=== PATIENT | female | born 1990 | race Caucasian/White ===

== ENCOUNTER → 2017-06-28 | Outpatient (CLI) | payer BC ==
[~2017-06-28] MED LIST: PRENTAB26 PO
== END | disposition home or self-care (01) ==
LOC: C.PAPS 14:54
PROVIDERS: ATTEND Obstetrics & Gynecology
DX: Z34.81 Encounter for supervision of other normal pregnancy, first trimester (principal)

== ENCOUNTER → 2017-06-28 | Outpatient (CLI) | payer BC ==
[2017-07-02 07:44] LABS: CHLAMYDIA TRACH RNA*** NOT DETECTED (NOT DETECTED); GC (NEIS GONORRHOEAE)RNA** NOT DETECTED (NOT DETECTED)
== END ==
LOC: C.LABSPEC 14:19
PROVIDERS: ATTEND Obstetrics & Gynecology
DX: Z34.81 Encounter for supervision of other normal pregnancy, first trimester (principal)

== ENCOUNTER → 2017-06-29 | Outpatient (CLI) | payer BC | END | disposition home or self-care (01) | LOC: C.LAB 15:23 | PROVIDERS: ATTEND Obstetrics & Gynecology | DX: Z34.81 Encounter for supervision of other normal pregnancy, first trimester (principal) ==

== ENCOUNTER → 2017-07-31 | Day surgery (SDC) | payer BC ==
[~2017-07-31] VITALS: Ht 154.9 cm; Wt 70.3 kg
[2017-07-31 16:00] VITALS: BP 121/67; PULSE 72; TEMP 36.7; O2SAT 98; Ht 154.9 cm; Wt 70.3 kg
== END | disposition home or self-care (01) ==
LOC: C.MTU 15:43
PROVIDERS: ATTEND Obstetrics & Gynecology
DX: O20.0 Threatened abortion (principal)

== ENCOUNTER → 2017-09-13 | Outpatient (CLI) | payer BC ==
[2017-09-13 10:06] LABS: BASO % 0.2 %; BASO ABS # 0.02 K/uL (0-0.2); COMPLETE YES; EOS % 0.6 %; HEMATOCRIT 38.6 % (37-47); IG% 0.5 %; LYMPH % 17.7 %; LYMPH ABS # 1.51 K/uL (1.2-3.4); MEAN CORPUSCULAR HEMOGLOBIN 30.5 pg (25-34); MEAN CORPUSCULAR HGB CONC 33.9 g/dl (32-36); MONO % 4.7 %; NEUT % 76.3 %; PLATELET COUNT 191 K/uL (130-400); RED BLOOD COUNT 4.29 M/uL (4.2-5.4); WHITE BLOOD COUNT 8.53 K/uL (4.8-10.8)
[2017-09-13 10:35] LABS: GTGD 50 Grams
[2017-09-14 12:22] LABS: AFP CONCENTRATION 36.9 NG/ML; AFP MULTIPLE OF MEDIAN 1.16; AFPTS GESTATIONAL AGE 16.6 WEEKS; AFPTS INSULIN DEP DIABETIC? NO; AFPTS MATERNAL WT 175 LBS; ALPHA-FETOPROTEIN RACE CAUCASIAN=W; EDD DETERMINED BY ULTRASOUND; ESTRIOL MULTIPLE OF MEDIAN 0.84; HISTORY OF NTD NO; INHIBIN A 114 PG/ML; INHIBIN A MOM 0.73; REPEAT SAMPLE? NO; hCG MULTIPLE OF MEDIAN 0.95
== END | disposition home or self-care (01) ==
LOC: C.LAB 08:00
PROVIDERS: ATTEND Obstetrics & Gynecology
DX: Z34.82 Encounter for supervision of other normal pregnancy, second trimester (principal)

== ENCOUNTER → 2018-01-24 | Outpatient (CLI) | payer BC | END | disposition home or self-care (01) | LOC: C.LABSPEC 14:22 | PROVIDERS: ATTEND Obstetrics & Gynecology | DX: Z34.83 Encounter for supervision of other normal pregnancy, third trimester (principal) ==

== ENCOUNTER 2018-02-22 23:37 | Inpatient (IN) | payer BC ==
[~2018-02-22] VITALS: Ht 154.9 cm; Wt 91.0 kg
[2018-02-23] MEDS ORDERED: ACET650S10 (00:36)
[2018-02-23 00:44] VITALS: Ht 154.9 cm; Wt 91.0 kg
[2018-02-23] MEDS ORDERED: IV FLUIDS COMPLETED PRN (06:30)
[2018-02-23] MEDS ORDERED: DINOPROSTONE 10 MG INSERT PV ONE (10:15)
[2018-02-23] MEDS: BUTORPHANOL TARTRATE 1 MG/ML VIAL IV PRN ×2 (11:12→14:33)
[2018-02-23] MEDS ORDERED: LACTATED RINGER'S 1000ML 1,000 ML IV SCH (14:42)
[2018-02-23] MEDS ORDERED: LACTATED RINGER'S 1000ML 1,000 ML IV PRN (14:42)
[2018-02-23 15:10] LABS: HEMATOCRIT 37.5 % (37-47); HEMOGLOBIN 12.8 g/dL (12.0-16.0); MEAN CELL VOLUME 87.8 fL (80-100); MEAN CORPUSCULAR HGB CONC 34.1 g/dl (32-36); MEAN PLATELET VOLUME 9.3 fL (7.4-10.4); PLATELET COUNT 177 K/uL (130-400); RED CELL DISTRIBUTION WIDTH CV 13.8 % (11.5-14.5); RED CELL DISTRIBUTION WIDTH SD 43.9 fL (36.4-46.3); WHITE BLOOD COUNT 16.92 K/uL (4.8-10.8)
[2018-02-23] MEDS ORDERED: BUPIVACAINE 0.25% 30 ML VIAL ONE (16:05)
[2018-02-23] MEDS ORDERED: EpHEDrine SULFATE INJ 50 MG/ML AMP ONE (16:06)
[2018-02-23] MEDS ORDERED: FENTANYL CITRATE INJ 50 MCG/1 ML 2 ML VIAL ONE ×2 (16:06→17:08)
[2018-02-23] MEDS ORDERED: FENTANYL 2MCG/ML ROPIV 1.25MG/ML 100ML BAG EPI ONE (16:07)
[2018-02-23] MEDS ORDERED: LACTATED RINGER'S 1000ML 500 ML IV PRN ×2 (17:18→17:28)
[2018-02-23] MEDS ORDERED: NALOXONE HCL INJ 1 MG in SODIUM CHLORIDE 0.9% 1000ML 1,000 ML IV PRN (17:28)
[2018-02-23] MEDS ORDERED: ONDANSETRON INJ 2 MG/ML 2 ML VIAL IV PRN (17:30)
[2018-02-23] MEDS ORDERED: EpHEDrine SULFATE INJ 50 MG/ML AMP IV PRN (17:30)
[2018-02-23] MEDS ORDERED: FENTANYL 2MCG/ML ROPIV 1.25MG/ML 100ML BAG EPI PRN (17:30)
[2018-02-23] MEDS ORDERED: DiphenhydrAMINE HCL 50 MG/ML VIAL IV PRN (17:30)
[2018-02-23] MEDS ORDERED: NALBUPHINE HCL INJ 10 MG/ML AMP IV PRN (17:30)
[2018-02-23] MEDS ORDERED: OXYTOCIN 30 UNITS/500ML NSS IV PRN ×2 (17:30→21:15)
[2018-02-23] MEDS ORDERED: NALOXONE HCL INJ 0.4 MG/1 ML VIAL/CARP IV PRN (17:30)
[2018-02-23] MEDS ORDERED: SUPERCREAM 0.870 % 15GM JAR EXT PRN (21:15)
[2018-02-23] MEDS ORDERED: DIPHTHERIA/TETANUS/PERTUSSIS 0.5 ML SYR/VIAL IM. ONE (21:15)
[2018-02-23] MEDS ORDERED: BENZOCAINE 20% AER SPR 82.5 GM CAN EXT PRN (21:15)
[2018-02-23] MEDS ORDERED: ACETAMINOPHEN/CODEINE 300/30MG TAB PO PRN ×2 (21:15)
[2018-02-23] MEDS ORDERED: OXYCODONE/ACETAMINOPHEN 5-325 TAB PO PRN (21:15)
[2018-02-23] MEDS ORDERED: HYDROCORTISONE ACETATE 25 MG SUPP PR PRN (21:15)
[2018-02-23] MEDS ORDERED: LANOLIN OINT EXT PRN (21:15)
[2018-02-23] MEDS: IBUPROFEN 600 MG TAB PO PRN (22:42)
[2018-02-23 23:55] VITALS: BP 118/73; PULSE 108; TEMP 37.2; O2SAT 97
[2018-02-24 03:50] VITALS: BP 116/76; PULSE 90; TEMP 36.8; O2SAT 96
[2018-02-24] MEDS: IBUPROFEN 600 MG TAB PO PRN ×5 (05:48→22:45)
[2018-02-24] MEDS: FERROUS SULFATE 325 MG TAB PO SCH (08:21)
[2018-02-24] MEDS: DOCUSATE SODIUM 100 MG CAP PO SCH ×2 (08:21→19:44)
[2018-02-24] MEDS: PRENATAL VITAMIN TAB PO SCH (08:22)
--- NOTE | 2018-02-24 08:27 | Anesthesia Procedure Note ---
Anesthesia Epidural Removal Nt Date & Time Feb 24, 2018 at 08:27 Vital Signs Pain Intensity: 6.0 Vital Signs Past 12 Hours Date Time Temp Pulse Resp B/P (MAP) Pulse Ox O2 Delivery O2 Flow Rate FiO2 02/24/18 03:50 36.8 90 18 116/76 (89) 96 Room Air 02/23/18 23:55 37.2 108 18 118/73 (88) 97 Room Air 02/23/18 23:55 97 Room Air Notes Mental Status: alert / awake / arousable, participated in evaluation Nausea / Vomiting: adequately controlled Pain: adequately controlled Airway Patency, RR, SpO2: stable & adequate BP & HR: stable & adequate Hydration State: stable & adequate Neuraxial Anesthesia: was administered, sensory block is resolved Anesthetic Complications: no major complications apparent, pt satisfied with anesthetic care Epidural: removed without complications, with tip intact
[2018-02-24 09:00] VITALS: BP 121/79; PULSE 91; TEMP 36.8
[2018-02-24 09:24] LABS: HEMATOCRIT 37.2 % (37-47); HEMOGLOBIN 12.5 g/dL (12.0-16.0)
--- NOTE | 2018-02-24 12:11 | Progress Note ---
Subjective Feb 24, 2018. Subjective conversation w/ patient Ambulation: ambulating normally Voiding: no voiding problems Passing Gas: Yes Diet Tolerance: Regular Diet Lochia: Small Feeding Type: Breast Feeding Review of Systems Constitutional: + fever Objective Vital Signs Date Time Temp Pulse Resp B/P (MAP) Pulse Ox O2 Delivery O2 Flow Rate FiO2 02/24/18 09:00 36.8 91 20 121/79 (93) Room Air 02/24/18 09:00 Room Air 02/24/18 03:50 36.8 90 18 116/76 (89) 96 Room Air 02/23/18 23:55 37.2 108 18 118/73 (88) 97 Room Air 02/23/18 23:55 97 Room Air Physical Exam General Appearance: WELL-APPEARING Fundus: Firm, Non-Tender Extremities: no pedal edema, no calf tenderness Laboratory Results Last 24 Hours Test 02/23/18 14:58 02/24/18 09:13 White Blood Count 16.92 K/uL Red Blood Count 4.27 M/uL Hemoglobin 12.8 g/dL 12.5 g/dL Hematocrit 37.5 % 37.2 % Mean Corpuscular Volume 87.8 fL Mean Corpuscular Hemoglobin 30.0 pg Mean Corpuscular Hemoglobin Concent 34.1 g/dl RDW Standard Deviation 43.9 fL RDW Coefficient of Variation 13.8 % Platelet Count 177 K/uL Mean Platelet Volume 9.3 fL Assessment and Plan Post- Day#: 1
[2018-02-24 12:30] VITALS: BP 113/75; PULSE 99; TEMP 36.9
[2018-02-24 16:30] VITALS: BP 106/72; PULSE 88; TEMP 36.7
[2018-02-24 19:35] VITALS: BP 108/70; PULSE 90; TEMP 36.6
[2018-02-24] MEDS ORDERED: BISACODYL 5 MG TABEC PO SCH (20:00)
[2018-02-25 00:40] VITALS: BP 112/70; PULSE 90; TEMP 36.6
[2018-02-25] MEDS: IBUPROFEN 600 MG TAB PO PRN ×3 (02:42→14:32)
[2018-02-25] MEDS ORDERED: BISACODYL 10 MG SUPP PR PRN (07:00)
[2018-02-25 07:23] VITALS: BP 97/64; PULSE 70; TEMP 36.6; O2SAT 97
[2018-02-25 07:30] VITALS: O2SAT 97
[2018-02-25 07:52] VITALS: O2SAT 97
[2018-02-25] MEDS: FERROUS SULFATE 325 MG TAB PO SCH (08:12)
[2018-02-25] MEDS: DOCUSATE SODIUM 100 MG CAP PO SCH (08:12)
[2018-02-25] MEDS: PRENATAL VITAMIN TAB PO SCH (08:12)
--- NOTE | 2018-02-25 09:21 | Progress Note ---
Subjective Feb 25, 2018. Subjective conversation w/ patient Ambulation: ambulating normally Voiding: no voiding problems Passing Gas: Yes Diet Tolerance: Regular Diet Lochia: Small Feeding Type: Breast Feeding Review of Systems Constitutional: + fever Objective Vital Signs Date Time Temp Pulse Resp B/P (MAP) Pulse Ox O2 Delivery O2 Flow Rate FiO2 02/25/18 07:52 97 Room Air 02/25/18 07:23 36.6 70 16 97/64 (75) 97 Room Air 02/25/18 00:40 Room Air 02/25/18 00:40 36.6 90 18 112/70 (84) Room Air 02/24/18 19:35 36.6 90 18 108/70 (83) Room Air 02/24/18 16:30 Room Air 02/24/18 16:30 36.7 88 18 106/72 (83) Room Air 02/24/18 12:30 36.9 99 18 113/75 (88) Room Air Physical Exam General Appearance: WELL-APPEARING Respiratory/Chest: lungs clear Abdomen: non tender Fundus: Firm, Non-Tender Extremities: no pedal edema, no calf tenderness Assessment and Plan Post- Day#: 2
--- NOTE | 2018-02-25 09:23 | Discharge Instructions ---
Discharge Instructions Date of Service Feb 25, 2018. Admission Reason for Admission: Labor Check Discharge Discharge Diagnosis / Problem: term delivery Discharge Goals Goal(s): Routine recovery after delivery Activity Recommendations Activity Limitations: as noted below ACTIVITY RECOMMENDATIONS: * Gradual return to full activity over the next 2-3 weeks. * No lifting - nothing heavier than baby over the next 2-3 weeks. * Do not engage in vigorous exercise, sexual activity or sports until cleared by your physician. * Do not drive or operate any motorized equipment until cleared by your physician. * You may shower/bathe daily. DIET: Resume Previous Diet If Breast-feeding: * Increase caloric intake by 500 calories, eat 3 well balanced meals, 2 high protein snacks a day and drink 6-8 8oz. glasses of fluid per day. BREAST CARE: If you are not breast feeding: * Wear a supportive bra 24 hours a day for one to two weeks. * Avoid stimulating your breasts and nipples as much as possible during the first few weeks after delivery. * When taking a shower, have the warm water hit your back, not breasts. * When your breasts feel full, apply ice packs. Usually three to four times a day helps ease the discomfort. * Take a mild pain medication (Tylenol / Motrin) when you are uncomfortable. If breast feeding: * Use breast milk to lubricate nipples. Lansinoh cream may be used for sore nipples. You do not need to remove cream prior to breast feeding. If using a different brand of cream, check the label for directions regarding removal of cream prior to nursing. * Wear a supportive bra. * If having problems with breasts or breast feeding, call a senior market intelligence consultant or your health care provider. OVER THE COUNTER MEDICATION: * For discomfort or pain, you may use Acetaminophen (Tylenol), Ibuprofen (Advil ), or Naproxen (Aleve) following the package directions. * For constipation you may use Colace following the package directions. SPECIAL CARE INSTRUCTIONS: * Vaginal rest (no tampons, douching, intercourse) until after doctor 's visit. * control as discussed with doctor. * Verbalizes understanding of car seat law as reviewed with patient nursing. * Car Seat hand-out given and reviewed with patient by nursing. * Shaken baby information reviewed with patient by nursing. Call you doctor if: * Temperature greater than or equal to 100.4 degrees F or 38.0 degrees C. Take your temperature twice daily for a week. * Bleeding becomes heavier than the heaviest part of your period - saturating a sanitary pad within an hour. * Passing large clots. * Bleeding has a foul smelling odor. * Signs and symptoms of phlebitis: leg pain, warm, red or swollen area on leg. * "Baby Blues" lasting longer than two weeks. ++ If you have had a and incision has increased pain, redness, swelling, presence of any drainage, or if the incision starts to open up. If you have any questions or concerns, call your health care practitioner at [phone]. FOLLOW-UP VISIT: Please call the office at to schedule a 6 week examination. . Current Hospital Diet ACTIVITY RECOMMENDATIONS: * Gradual return to full activity over the next 2-3 weeks. * No lifting - nothing heavier than baby over the next 2-3 weeks. * Do not engage in vigorous exercise, sexual activity or sports until cleared by your physician. * Do not drive or operate any motorized equipment until cleared by your physician. * You may shower/bathe daily. DIET: Resume Previous Diet If Breast-feeding: * Increase caloric intake by 500 calories, eat 3 well balanced meals, 2 high protein snacks a day and drink 6-8 8oz. glasses of fluid per day. BREAST CARE: If you are not breast feeding: * Wear a supportive bra 24 hours a day for one to two weeks. * Avoid stimulating your breasts and nipples as much as possible during the first few weeks after delivery. * When taking a shower, have the warm water hit your back, not breasts. * When your breasts feel full, apply ice packs. Usually three to four times a day helps ease the discomfort. * Take a mild pain medication (Tylenol / Motrin) when you are uncomfortable. If breast feeding: * Use breast milk to lubricate nipples. Lansinoh cream may be used for sore nipples. You do not need to remove cream prior to breast feeding. If using a different brand of cream, check the label for directions regarding removal of cream prior to nursing. * Wear a supportive bra. * If having problems with breasts or breast feeding, call a senior market intelligence consultant or your health care provider. OVER THE COUNTER MEDICATION: * For discomfort or pain, you may use Acetaminophen (Tylenol), Ibuprofen (Advil ), or Naproxen (Aleve) following the package directions. * For constipation you may use Colace following the package directions. SPECIAL CARE INSTRUCTIONS: * Vaginal rest (no tampons, douching, intercourse) until after doctor 's visit. * control as discussed with doctor. * Verbalizes understanding of car seat law as reviewed with patient nursing. * Car Seat hand-out given and reviewed with patient by nursing. * Shaken baby information reviewed with patient by nursing. Call you doctor if: * Temperature greater than or equal to 100.4 degrees F or 38.0 degrees C. Take your temperature twice daily for a week. * Bleeding becomes heavier than the heaviest part of your period - saturating a sanitary pad within an hour. * Passing large clots. * Bleeding has a foul smelling odor. * Signs and symptoms of phlebitis: leg pain, warm, red or swollen area on leg. * "Baby Blues" lasting longer than two weeks. ++ If you have had a and incision has increased pain, redness, swelling, presence of any drainage, or if the incision starts to open up. If you have any questions or concerns, call your health care practitioner at [phone]. FOLLOW-UP VISIT: Please call the office at to schedule a 6 week examination. Patient's current hospital diet: Regular Diet Discharge Diet Recommended Diet: Regular Diet Pending Studies Studies pending at discharge: no Medical Emergencies . Who to Call and When: Medical Emergencies: If at any time you feel your situation is an emergency, please call 911 immediately. . Non-Emergent Contact Non-Emergency issues call your: Corporate Director Of Pharmacy Call Non-Emergent contact if: temperature is above 100.5 . . "Provider Documentation" section prepared by Brett Acevedo. .
[2018-02-25] MEDS: ACETAMINOPHEN 325 MG TAB PO PRN ×2 (11:46→18:02)
[2018-02-25 15:45] VITALS: BP 99/65; PULSE 84; TEMP 36.7
[2018-02-25 19:18] VITALS: BP_DIAS 65; PULSE 84; TEMP 36.7
--- NOTE | 2018-03-06 13:53 | DELIVERY SUMMARY ---
DATE OF OPERATION: 02/23/2018 The patient is followed in my office for care and delivery. Her due date is 02/24/2018. She was admitted in active labor. She labored spontaneously during the night. Her cervix failed to change. The following morning, she was given a Cervidil tape. With this, her cervix began to dilate. She eventually went on to an epidural and then after the epidural, the tape was removed and she was started on IV Pitocin. She went to full dilatation, pushed about 40 minutes, pushed out a live via direct occiput anterior position over an intact perineum. At the time, she incurred a first-degree laceration, which was repaired anatomically. Estimated blood loss was about 300 mL, 1 and 5 minute Apgars were good. The patient tolerated delivery with no problems. I attest to the content of the Intraoperative Record and any orders documented therein. Any exception s are noted below.
== END 2018-02-25 19:21 | disposition home or self-care (01) | DRG 775 ==
LOC: C.OPB 23:37 → C.LD 23:40 → C.OPB 02-23 04:52 → C.LD 02-23 04:52 → OBSVTOIN 02-23 10:00 → C.OBG 02-23 23:38
PROVIDERS: ADMIT Obstetrics & Gynecology; ATTEND Obstetrics & Gynecology
PROC: 10E0XZZ Delivery of Products of Conception, External Approach (ICD-10-PCS; principal; 2018-02-23)
PROC: 0HQ9XZZ Repair Perineum Skin, External Approach (ICD-10-PCS; principal; 2018-02-23)
DX: O70.0 First degree perineal laceration during delivery (principal); Z37.0 Single live birth; Z3A.39 39 weeks gestation of pregnancy

== ENCOUNTER 2020-12-12 23:13 | Inpatient (IN) ==
[2020-12-12] MEDS ORDERED: OXYTOCIN 30 UNITS/500 ML BAG IV PRN (23:53)
[2020-12-12] MEDS ORDERED: SODIUM CHLORIDE 0.9% INJ 10 ML VIAL ONE (23:57)
[2020-12-12] MEDS ORDERED: ePHEDrine sulfate 50 MG/ML AMP ONE (23:57)
[2020-12-12] MEDS ORDERED: fentaNYL citrate 100 MCG/2 ML VIAL ONE (23:57)
[2020-12-12] MEDS ORDERED: BUPIVACAINE 0.25% 30 ML VIAL ONE (23:57)
[2020-12-12] MEDS ORDERED: fentaNYL 2MCG/ML ROPIVACAINE 1.25MG/ML 100 ML BAG EPI ONE (23:58)
[2020-12-13] MEDS: LACTATED RINGER'S 1,000 ML IV PRN ×2 (00:06→01:45)
[2020-12-13 00:30] LABS: Hematocrit (blood only) 38.2 % (37-47); Hemoglobin 12.9 g/dL (12.0-16.0); Mean Corpuscular Hemoglobin 30.8 pg (25-34); Mean Corpuscular Hgb Conc 33.8 g/dL (32-36); Mean Corpuscular Volume 91.2 fL (80-100); Mean Platelet Volume 10.2 fL (7.4-10.4); Platelet Count 217 K/uL (130-400); RDW Coefficient of Variation 13.7 % (11.5-14.5); RDW Standard Deviation 44.8 fL (36.4-46.3); Red Blood Count 4.19 M/uL (4.2-5.4); White Blood Count 10.98 K/uL (4.8-10.8)
--- NOTE | 2020-12-13 01:36 | Anesthesiology Consultation ---
Date of Service December 13, 2020 Assessment & Plan Chart Review Chart Review: Acceptable Risk for Surgery Consults Requested none History Height/Weight Height: 5 ft 2 in Weight: 81.193 kg Allergies Allergy/AdvReac Type Severity Reaction Status Date / Time No Known Allergies Allergy Verified 09/22/20 07:13 Medications Home Medications Medication Instructions Recorded Confirmed Last Taken [id number]-[id number] 1 tab PO DAILY 12/12/20 12/12/20 12/12/20 [] Active Medications Generic Name Dose Route Start Last Admin Trade Name Freq PRN Reason Stop Dose Admin Lactated Ringer's 1,000 mls @ 125 mls/hr 12/12/20 23:53 12/13/20 00:06 Lr IV 12/14/20 23:52 999 mls/hr .Q8H PRN Administration L&D Protocol Protocol Past Medical History Medical History Hx of vaginal delivery Past Family History Family History Other Family history of breast cancer Family history of diabetes mellitus Family hx of colon cancer Social History Smoking Status: Never smoker Hx Alcohol Use: No Hx Substance Use: No Physical Exam Vital Signs Last Vital Signs Temp 36.7 C 12/12/20 23:34 Pulse 97 H 12/13/20 01:33 Resp 18 12/12/20 23:34 BP 117/57 L 12/13/20 01:33 Pulse Ox 97 12/13/20 01:33 Testing Laboratory Results 12/13/20 00:05
[2020-12-13] MEDS ORDERED: NALOXONE HCL 0.4 MG/1 ML VIAL/CARP IV PRN (01:37)
[2020-12-13] MEDS ORDERED: diphenhydrAMINE 50 MG/ML VIAL IV PRN (01:37)
[2020-12-13] MEDS ORDERED: ePHEDrine sulfate 50 MG/ML AMP IV PRN (01:37)
[2020-12-13] MEDS ORDERED: fentaNYL 2MCG/ML ROPIVACAINE 1.25MG/ML 100 ML BAG EPI PRN (01:37)
[2020-12-13] MEDS ORDERED: NALOXONE HCL 1 MG in SODIUM CHLORIDE 0.9% 1000ML 1,000 ML IV PRN (01:37)
[2020-12-13] MEDS ORDERED: BENZOCAINE 20% AER SPR 82.5 GM CAN EXT PRN (02:29)
[2020-12-13] MEDS ORDERED: HYDROCORTISONE ACETATE 25 MG SUPP PR PRN (02:29)
[2020-12-13] MEDS ORDERED: bisacodyL 10 MG SUPP PR PRN (02:29)
[2020-12-13] MEDS ORDERED: oxyCODONE/ACETAMINOPHEN 5mg/325mg TAB PO PRN (02:29)
[2020-12-13] MEDS ORDERED: ACETAMINOPHEN 325 MG TAB PO PRN (02:29)
[2020-12-13] MEDS ORDERED: SUPERCREAM 0.870% 15 GM JAR EXT PRN (02:29)
[2020-12-13] MEDS ORDERED: DIPHTHERIA/TETANUS/PERTUSSIS 0.5 ML SYR/VIAL IM ONE (02:29)
[2020-12-13] MEDS ORDERED: ACETAMINOPHEN W/CODEINE #3 1 TAB PO PRN (02:29)
[2020-12-13] MEDS ORDERED: OXYTOCIN 30 UNITS/500 ML BAG IV PRN (02:29)
--- NOTE | 2020-12-13 03:52 | Operative Report (OR) ---
DATE OF OPERATION: 12/13/2020 Mrs. Casanova was admitted in active labor. She was a 2, para 2, in good general health. course was uneventful. She had a mild case of COVID prior to delivery; however, at the time of delivery, she was over 21 days past her initial symptoms and she had no fever. Had no symptoms actually for a good week prior to coming in. She was admitted at about 4 cm, was given fluids, epidural, got good pain relief. By the time I checked her, she was about 7 cm. Cervix was thin, ruptured her membranes, went to full dilatation, pushed out a live infant via direct occiput anterior position over an intact perineum. There was a tight nuchal cord that had to be clamped and cut. The was then delivered without difficulty. Cord blood was taken. With IV Pitocin running, the placenta was removed intact. Inspection of the perineum revealed a first-degree laceration. This was repaired anatomically with 2-0 Vicryl approximating the vaginal mucosa out and to beyond the hymenal ring using two deep sutures, one in the bulbocavernosus muscle and the other in the perineal body to approximate the deep tissues, and then a running subcuticular suture to approximate the skin edges. Following this, vag exam including rectovaginal examination revealed no hematoma formation or sponges in the vagina. Estimated blood loss was only 100 mL. I attest to the content of the Intraoperative Record and any orders documented therein. Any exception s are noted below.
[2020-12-13] MEDS: DOCUSATE SODIUM 100 MG CAP PO SCH ×2 (08:35→21:10)
[2020-12-13] MEDS: PRENATAL VITAMIN 1 TAB PO SCH (08:35)
[2020-12-13] MEDS: IBUPROFEN 600 MG TAB PO PRN ×3 (08:36→19:41)
--- NOTE | 2020-12-13 10:58 | Anesthesia Procedure Note ---
Date of Service December 13, 2020 Anesthesia Post Epidural Note Vital Signs Vital Signs: Temp Pulse Resp BP Pulse Ox 37.0 C 85 18 113/75 97 12/13/20 07:45 12/13/20 07:45 12/13/20 07:45 12/13/20 07:45 12/13/20 07:45 Notes Mental Status: alert / awake / arousable and participated in evaluation Nausea / Vomiting: adequately controlled Pain: adequately controlled Airway Patency, RR, SpO2: stable & adequate BP & HR: stable & adequate Hydration State: stable & adequate Neuraxial Anesthesia: was administered and sensory block is resolving Anesthetic Complications: no major complications apparent and Pt Satisfied with anesthetic care Epidural: Removed without complications and With tip intact
[2020-12-14 06:31] LABS: Hematocrit (blood only) 35.8 % (37-47); Mean Corpuscular Hemoglobin 30.6 pg (25-34); Mean Corpuscular Hgb Conc 33.5 g/dL (32-36); Mean Corpuscular Volume 91.3 fL (80-100); Mean Platelet Volume 10.5 fL (7.4-10.4); Platelet Count 187 K/uL (130-400); RDW Standard Deviation 46.7 fL (36.4-46.3); Red Blood Count 3.92 M/uL (4.2-5.4); White Blood Count 10.41 K/uL (4.8-10.8)
[2020-12-14] MEDS: IBUPROFEN 600 MG TAB PO PRN ×2 (08:49→14:44)
[2020-12-14] MEDS: PRENATAL VITAMIN 1 TAB PO SCH (08:49)
[2020-12-14] MEDS: DOCUSATE SODIUM 100 MG CAP PO SCH (08:50)
--- NOTE | 2020-12-14 09:26 | Obstetrical Progress Note ---
Date of Service December 14, 2020 Assessment & Plan Admission and Anticipated Discharge Date Admission Date: December 12, 2020 Physical Exam Physical Exam: abdomen soft and non tender no calf tenderness ambulating well vaginal bleeding scant hgb 12.0 Results & Data ([facility]) Vital Signs (Past 12 Hours) Vital Signs Temp Pulse Pulse Resp BP Pulse Ox 12/14/20 07:54 37 C 92 H 18 123/75 96 12/14/20 05:05 36.5 C 78 18 111/78 12/14/20 00:15 36.6 C 66 16 111/75
[2020-12-14] MEDS ORDERED: bisacodyL 5 MG TABEC PO SCH (20:00)
== END 2020-12-14 18:25 | disposition home or self-care (01) | DRG 807 ==
LOC: OPB 23:13 → 4S1 23:16 → 4S2 12-13 06:44

== ENCOUNTER 2023-06-18 02:47 | Inpatient (IN) ==
[2023-06-18] MEDS ORDERED: LIDOCAINE 1% LOCAL 20 ML VIAL INFIL PRN (03:23)
[2023-06-18] MEDS ORDERED: OXYTOCIN 30 UNITS/500 ML BAG IV PRN ×3 (03:23→15:25)
[2023-06-18 04:00] LABS: Hematocrit (blood only) 36.8 % (37.0-47.0); Hemoglobin 12.9 g/dl (12.0-16.0); Mean Corpuscular Hemoglobin 30.6 pg (25.0-34.0); Mean Corpuscular Hgb Conc 35.1 g/dL (32.0-36.0); Mean Corpuscular Volume 87.4 fL (80.0-100.0); Mean Platelet Volume 10.2 fL (9.4-12.4); Platelet Count 198 K/uL (130-400); RDW Coefficient of Variation 13.9 % (11.5-14.5); RDW Standard Deviation 43.8 fL (36.4-46.3); Red Blood Count 4.21 M/uL (4.20-5.40); White Blood Count 13.77 K/ul (4.8-10.8)
[2023-06-18] MEDS ORDERED: fentaNYL citrate PF 100 MCG/2 ML VIAL ONE (09:02)
[2023-06-18] MEDS ORDERED: fentaNYL 2MCG/ML ROPIVACAINE 1.25MG/ML 100 ML BAG EPI ONE (09:03)
[2023-06-18] MEDS ORDERED: LIDOCAINE 2%/EPINEPHRINE 1:200,000 20 ML PF ONE (09:03)
[2023-06-18] MEDS ORDERED: SODIUM CHLORIDE 0.9% PF INJ 10 ML VIAL ONE (09:03)
[2023-06-18] MEDS: LACTATED RINGER'S 1,000 ML IV PRN ×2 (09:03→13:40)
[2023-06-18] MEDS ORDERED: BUPIVACAINE 0.25% PF 30 ML VIAL ONE (09:03)
[2023-06-18] MEDS ORDERED: ePHEDrine sulfate 50 MG/ML AMP ONE (09:03)
--- NOTE | 2023-06-18 10:07 | Anesthesiology Consultation ---
Date of Service June 18, 2023 Assessment & Plan Chart Review Chart Review: Patient NOT seen in Pre Admission Testing and Acceptable Risk for Labor Epidural Consults Requested none ASA ASA2 Proposed Anesthesia Anesthesia Type: Labor Epidural Risk / Benefits Reviewed With: PT / POA / Parent / Guardian, Accepts Plan and Informed Consent Obtained History Height/Weight Height: 5 ft 2 in Weight: 94.347 kg Allergies Allergy/AdvReac Type Severity Reaction Status Date / Time No Known Allergies Allergy Verified 04/13/23 07:47 Medications Home Medications Medication Instructions Recorded Confirmed Last Taken mxejqjwc-[id number] 1 mg 1 tab PO DAILY 12/12/20 06/18/23 06/17/23 tablet sertraline 50 mg tablet (Zoloft) 50 mg PO DAILY 04/13/23 06/18/23 06/17/23 Active Medications Generic Name Dose Route Start Last Admin Trade Name Freq PRN Reason Stop Dose Admin Lactated Ringer's 1,000 mls @ 125 mls/hr 06/18/23 03:23 06/18/23 09:33 Lr IV 06/20/23 03:22 125 mls/hr .Q8H PRN Infusion L&D Protocol Protocol Past Medical History Medical History Hx of vaginal delivery Exercise / Class Metabolic Activity II 4-5 Yardwork/Stairs/Walk up hill Past Family History Family History Other Family history of breast cancer Family history of diabetes mellitus Family hx of colon cancer Past Surgical History Surgical History (Updated 06/18/23 @ 03:00 by Yudelka Coronel RN) Amery teeth removed Past Anesthesia History No Hx of Anesthesia Complications and No Family Hx of Anesthesia Complications History of PONV No Hx of PONV and No Hx of Motion Sickness Social History Smoking Status: Never smoker Hx Alcohol Use: No Hx Substance Use: No Physical Exam Vital Signs Last Vital Signs Temp 36.9 C 06/18/23 07:03 Pulse 104 H 06/18/23 10:04 Resp 18 06/18/23 07:03 BP 114/71 06/18/23 10:04 Pulse Ox 98 06/18/23 10:04 ENMT Mouth: no dentition abnormality Thyromental Distance: > or= 3.5 Finger Breadths Mallampati Class: II Neck normal visual inspection Respiratory normal respiratory effort Auscultation: lungs clear to auscultation bilaterally Cardiovascular Rate/Rhythm: regular rate and regular rhythm Psychiatric Orientation: alert Testing Laboratory Results 06/18/23 03:45
[2023-06-18] MEDS ORDERED: BUPIVACAINE 0.25% PF 30 ML VIAL EPI STA (10:08)
[2023-06-18] MEDS ORDERED: ROPIVACAINE 0.5% PF 5 MG/ML 20 ML VIAL EPI PRN (10:08)
[2023-06-18] MEDS ORDERED: NALOXONE HCL 0.4 MG/1 ML VIAL/CARP IV PRN (10:08)
[2023-06-18] MEDS ORDERED: fentaNYL 2MCG/ML ROPIVACAINE 1.25MG/ML 100 ML BAG EPI PRN (10:08)
[2023-06-18] MEDS ORDERED: fentaNYL citrate PF 100 MCG/2 ML VIAL EPI PRN (10:08)
[2023-06-18] MEDS ORDERED: SODIUM CHLORIDE 0.9% PF INJ 10 ML VIAL EPI PRN (10:08)
[2023-06-18] MEDS ORDERED: diphenhydrAMINE 50 MG/ML VIAL IV PRN (10:08)
[2023-06-18] MEDS ORDERED: fentaNYL citrate PF 100 MCG/2 ML VIAL EPI STA (10:08)
[2023-06-18] MEDS ORDERED: SODIUM CHLORIDE 0.9% PF INJ 10 ML VIAL EPI STA (10:08)
[2023-06-18] MEDS ORDERED: NALBUPHINE HCL INJ 10 MG/ML AMP IV PRN (10:08)
[2023-06-18] MEDS ORDERED: NALOXONE HCL 1 MG in SODIUM CHLORIDE 0.9% 1000ML 1,000 ML IV PRN (10:08)
[2023-06-18] MEDS ORDERED: BUPIVACAINE 0.25% PF 30 ML VIAL EPI PRN (10:08)
[2023-06-18] MEDS ORDERED: LIDOCAINE 2% MPF LOCAL 5 ML VIAL EPI PRN (10:08)
[2023-06-18] MEDS ORDERED: ePHEDrine sulfate 50 MG/ML AMP IV PRN (10:08)
[2023-06-18] MEDS ORDERED: ONDANSETRON INJ 2 MG/ML 2 ML VIAL IV PRN (10:08)
[2023-06-18] MEDS ORDERED: LIDOCAINE 2%/EPINEPHRINE 1:200,000 20 ML PF EPI STA (10:08)
[2023-06-18] MEDS ORDERED: DIPHTHERIA/TETANUS/PERTUSSIS Vaccine (Tdap, Age 7+yrs) 0.5mL SYR/VL IM ONE (15:25)
[2023-06-18] MEDS ORDERED: bisacodyL 10 MG SUPP PR PRN (15:25)
[2023-06-18] MEDS ORDERED: METHYLERGONOVINE MALEATE 0.2 MG/ML AMP IM ONE (15:25)
[2023-06-18] MEDS ORDERED: oxyCODONE/ACETAMINOPHEN 5mg/325mg TAB PO PRN (15:25)
[2023-06-18] MEDS ORDERED: HYDROCORTISONE ACETATE 25 MG SUPP PR PRN (15:25)
[2023-06-18] MEDS ORDERED: BENZOCAINE 20% SPRY 85 APPLN/85 GM CAN EXT PRN (15:25)
[2023-06-18] MEDS ORDERED: ACETAMINOPHEN W/CODEINE #3 1 TAB PO PRN (15:25)
--- NOTE | 2023-06-18 15:33 | Delivery Summary ---
Vaginal Delivery Summary Date of Service June 18, 2023 Vaginal Delivery Summary Patient is a 32-year-old 3 para 3. Followed in our office for care and delivery. Patient had an uneventful course. Was admitted in active labor at 40 weeks and 4 days first time I checked the patient she was 6 cm dilated with a vertex presentation and a -2 station. She was augmented with IV Pitocin. She received epidural for pain control. Went to full dilatation and pushed out a live male . There was a nuchal cord around the neck. I tried to reduce it over the head and was not able to do that. I delivered the infant with the cord around the neck and then allowed it to pulse for 60 seconds. With IV Pitocin and I removed the placenta intact. Inspection of the perineum revealed a first-degree laceration of the perineum. Heavy-duty Vicryl was used to approximate the bulbocavernosus muscle with 1 stitch. Perineal body with another stitch. And a running subcuticular suture to approximate the skin edges. Estimated blood loss was 200 mL.
--- NOTE | 2023-06-18 18:32 | Anesthesia Procedure Note ---
Date of Service June 18, 2023 Anesthesia Post Epidural Note Vital Signs Vital Signs: Temp Pulse Resp BP Pulse Ox 37.0 C 100 H 18 124/66 96 06/18/23 15:26 06/18/23 17:40 06/18/23 17:26 06/18/23 17:40 06/18/23 16:29 Pain Intensity Lower Abdomen: Pain Intensity: 0 Notes Mental Status: alert / awake / arousable Nausea / Vomiting: adequately controlled Pain: adequately controlled Airway Patency, RR, SpO2: stable & adequate BP & HR: stable & adequate Hydration State: stable & adequate Neuraxial Anesthesia: was administered and sensory block is resolving Anesthetic Complications: no major complications apparent and Pt Satisfied with anesthetic care Epidural: Removed without complications and With tip intact
[2023-06-18] MEDS: IBUPROFEN 600 MG TAB PO PRN ×2 (19:17→23:04)
[2023-06-18] MEDS: DOCUSATE SODIUM 100 MG CAP PO SCH (20:10)
[2023-06-18] MEDS: ACETAMINOPHEN 325 MG TAB PO PRN (20:11)
[2023-06-19] MEDS: IBUPROFEN 600 MG TAB PO PRN ×2 (03:30→07:45)
[2023-06-19] MEDS: ACETAMINOPHEN 325 MG TAB PO PRN ×2 (03:30→10:32)
[2023-06-19 06:51] LABS: Hematocrit (blood only) 33.5 % (37.0-47.0); Hemoglobin 11.7 g/dl (12.0-16.0); Mean Corpuscular Hemoglobin 30.5 pg (25.0-34.0); Mean Corpuscular Hgb Conc 34.9 g/dL (32.0-36.0); Mean Corpuscular Volume 87.5 fL (80.0-100.0); Mean Platelet Volume 10.5 fL (9.4-12.4); Platelet Count 166 K/uL (130-400); RDW Coefficient of Variation 14.5 % (11.5-14.5); RDW Standard Deviation 45.8 fL (36.4-46.3); Red Blood Count 3.83 M/uL (4.20-5.40)
[2023-06-19] MEDS: DOCUSATE SODIUM 100 MG CAP PO SCH (07:44)
[2023-06-19] MEDS ORDERED: PRENATAL VITAMIN 1 TAB PO SCH (08:00)
--- NOTE | 2023-06-19 08:43 | Obstetrical Progress Note ---
Date of Service June 19, 2023 Assessment & Plan Admission and Anticipated Discharge Date Admission Date: June 18, 2023 OB Progress Note abdomen soft and non tender no calf tenderness ambulating well vaginal bleeding scant hgb 11.7 Results & Data Vital Signs (Past 12 Hours) Vital Signs Temp Pulse Resp BP Pulse Ox O2 Del Method 06/19/23 03:33 36.5 C 92 H 18 122/81 96 Room Air 06/18/23 23:07 36.9 C 88 18 129/79 97 Room Air
[2023-06-19] MEDS ORDERED: bisacodyL 5 MG TABEC PO SCH (20:00)
== END 2023-06-19 18:40 | disposition home or self-care (01) | DRG 807 ==
LOC: OPB 02:47 → 4S1 02:49 → 4E2 21:59